=== PATIENT | male | born 1970 | race Caucasian/White ===

== ENCOUNTER 2018-04-06 09:59 | Emergency (ER) | payer OTHER ==
[2018-04-06] MEDS ORDERED: diphenhydrAMINE 25 MG CAP PO STA (10:46)
[2018-04-06] MEDS ORDERED: FAMOTIDINE 20 MG TAB PO STA (10:46)
[2018-04-06] MEDS ORDERED: predniSONE 50 MG TAB PO STA (10:46)
--- NOTE | 2018-04-06 11:10 | ED ---
Allergic Reaction HPI - General Chief complaint: Allergic Reaction Stated complaint: Bee Sting-[facility] Time Seen by Provider: 04/06/18 10:30 Source: patient, RN notes reviewed Mode of arrival: ambulatory Limitations: no limitations - History of Present Illness Initial Comments: Is a 47-year-old male with a benign past medical history states he was stung by a bee about 2 hours prior to arrival. He complains some tightness in his throat some discomfort to the left side of his face where he was stung he denies any itchiness at this time no shortness of breath no other modifying factors. He has no prior history of bee sting ALLERGIES. MD Complaint: allergic reaction - Related Data Home Medications Medication Instructions Recorded Confirmed Montelukast [Singulair] 10 mg PO HS 07/14/16 04/06/18 Sertraline [Zoloft] 100 mg PO HS 07/14/16 04/06/18 hydrOXYzine PAMOATE [Vistaril] 100 mg PO HS 07/14/16 04/06/18 Acetaminophen Tab [Tylenol Tab] 1,000 mg PO Q6H PRN 04/06/18 04/06/18 Atenolol [Tenormin] 25 mg PO HS 04/06/18 04/06/18 Ranitidine HCl 300 mg PO DAILY 04/06/18 04/06/18 Previous Rx's Medication Instructions Recorded Famotidine [Pepcid] 20 mg PO BID #10 tablet 04/06/18 diphenhydrAMINE [Benadryl] 25 mg PO QID PRN #20 capsule 04/06/18 methylPREDNISolone Dose Pack 4 mg PO DIRECTED #21 package 04/06/18 [Medrol Dose Pack] Allergies Allergy/AdvReac Type Severity Reaction Status Date / Time clarithromycin [From Biaxin] Allergy Rash/Hives Verified 04/06/18 10:47 aspirin AdvReac Chest Pain Verified 04/06/18 10:47 orenaid Allergy INCREASES Uncoded 04/06/18 10:47 BP Review of Systems ROS Statement: Those systems with pertinent positive or pertinent negative responses have been documented in the HPI. ROS Other: All systems not noted in ROS Statement are negative. Past Medical History Past Medical History: Hypertension Additional Past Medical History / Comment(s): anxiety History of Any Multi-Drug Resistant Organisms: None Reported Additional Past Surgical History / Comment(s): knee x4 Past Psychological History: Anxiety Smoking Status: Never smoker Past Alcohol Use History: None Reported Past Drug Use History: None Reported General Exam - General Exam Comments Initial Comments: This a well-developed well-nourished awake alert oriented times 3 male Limitations: no limitations General appearance: alert, anxious Head exam: Present: atraumatic, normocephalic, normal inspection Eye exam: Present: normal appearance, PERRL, EOMI. Absent: scleral icterus, conjunctival injection, periorbital swelling ENT exam: Present: normal exam, mucous membranes moist, other (Mild erythema seen to the left side of the face no obvious foreign body or open wound seen at this time.) Neck exam: Present: normal inspection, other (No stridor JVD or bruits appreciated). Absent: tenderness, meningismus, lymphadenopathy Respiratory exam: Present: normal lung sounds bilaterally. Absent: respiratory distress, wheezes, rales, rhonchi, stridor Cardiovascular Exam: Present: regular rate, normal rhythm, normal heart sounds. Absent: systolic murmur, diastolic murmur, rubs, gallop, clicks GI/Abdominal exam: Present: soft, normal bowel sounds. Absent: distended, tenderness, guarding, rebound, rigid Extremities exam: Present: normal inspection, full ROM, normal capillary refill. Absent: tenderness, pedal edema, joint swelling, calf tenderness Back exam: Present: normal inspection Neurological exam: Present: alert, oriented X3, CN II-XII intact Psychiatric exam: Present: normal affect, normal mood Skin exam: Present: warm, dry, intact, normal color. Absent: rash Course Vital Signs 04/06/18 10:13 Temperature 98.1 F Pulse Rate 75 Respiratory 20 Rate Blood Pressure 146/81 O2 Sat by Pulse 100 Oximetry Medical Decision Making - Medical Decision Making Workup is indicated at this time. Patient does present with evidence of a mild reaction to bee sting. Patient will be given appropriate medication and discharged. Disposition Clinical Impression: Allergic reaction to insect sting Disposition: HOME SELF-CARE Condition: Good Instructions: Insect Bite or Sting (ED) Prescriptions: diphenhydrAMINE [Benadryl] 25 mg PO QID PRN #20 capsule PRN Reason: Allergy Symptoms Famotidine [Pepcid] 20 mg PO BID #10 tablet methylPREDNISolone Dose Pack [Medrol Dose Pack] 4 mg PO DIRECTED #21 package Is patient prescribed a controlled substance at d/c from ED?: No Referrals: Mary Ellen Parks MD [Primary Care Provider] - 1-2 days
[2018-04-06 11:31] VITALS: BP 135/79; PULSE 79; RESP 18; TEMP 98
== END 2018-04-06 11:28 | disposition home or self-care (01) ==
LOC: EC 09:59
DX: T63.411A Toxic effect of venom of centipedes and venomous millipedes, accidental (unintentional), initial encounter (principal); I10 Essential (primary) hypertension; F41.9 Anxiety disorder, unspecified; Z79.899 Other long term (current) drug therapy; Z88.1 Allergy status to other antibiotic agents; Z88.6 Allergy status to analgesic agent; Z91.048 Other nonmedicinal substance allergy status; Y92.69 Other specified industrial and construction area as the place of occurrence of the external cause; Y99.0 Civilian activity done for income or pay
CPT/HCPCS: 99283; J7512

== ENCOUNTER → 2021-08-19 | Outpatient (CLI) | payer OTHER ==
--- NOTE | 2021-08-19 13:17 | XR ---
EXAM TYPE: LUMBAR SPINE X RAY SERIES COMPARISON: NONE HISTORY: Pain TECHNIQUE: 3 views are submitted. FINDINGS: Alignment is anatomic. The pedicles are intact. The transverse processes are intact. There is hype rtrophic spurring at multiple levels with moderate to severe degenerative disc disease L4-L5 and L5-S 1 with facet arthropathy. IMPRESSION: 1. Degenerative disc disease L4-5 and L5-S1 with facet arthropathy and probable foraminal encroachmen t. Correlate with MRI as clinically warranted.
== END | disposition home or self-care (01) ==
LOC: RADXRMAIN 12:51
PROVIDERS: ATTEND Emergency Medicine
DX: M51.37 Other intervertebral disc degeneration, lumbosacral region (principal); M47.897 Other spondylosis, lumbosacral region
CPT/HCPCS: 72100

== ENCOUNTER 2023-08-25 10:48 | Day surgery (SDC) | payer MEDICAID, OTHER ==
[~2023-08-25 10:48] MED LIST: LACTATED RINGERS 1,000 ML IV SCH
[2023-08-25] MEDS ORDERED: ONDANSETRON 4 MG/2 ML VIAL ONE (11:40)
[2023-08-25] MEDS ORDERED: PROPOFOL 10 MG/ML 20 ML VIAL IV ONE (11:43)
[2023-08-25 11:56] VITALS: RESP 16; TEMP 97.3
--- NOTE | 2023-08-25 12:00 | P.PCN ---
Date of Procedure: 08/25/23 Procedure(s) Performed: BRIEF HISTORY: Patient is a 53-year-old pleasant male scheduled for an elective colonoscopy as a part of screening for colon cancer and family history of colon cancer. Mother was diagnosed with colon cancer at age 58. PROCEDURE PERFORMED: Colonoscopy snare polypectomy. PREOPERATIVE DIAGNOSIS: Screening for colon cancer and family history of colon cancer. IV sedation per Anesthesia. PROCEDURE: After informed consent was obtained, the patient, was brought into the endoscopy unit. IV sedation was administered by Anesthesia under continuous monitoring. Digital rectal examination was normal. Initially the Olympus CF-160 flexible video colonoscope was then inserted in the rectum, gradually advanced into the cecum without any difficulty. Careful examination was performed as the scope was gradually being withdrawn. Ileocecal valve and the appendiceal orifice were visualized and appeared normal. Prep was excellent. Mucosa of the cecum had a 5 mm 2 polyps removed by cold snare polypectomy. In the hepatic flexure there was a 7 mm polyp removed by cold snare polypectomy. In the descending colon there was a 3 minute a polyp removed by snare polypectomy., ascending colon, transverse colon, descending colon, sigmoid colon, and rectum appeared normal. In the rectum there was a former limited polyp removed by snare polypectomy. Retroflexion was performed in the rectum and no lesions were seen. The patient tolerated the procedure well. Impression: 5 mm cecal polyp 2 status post cold snare polypectomy 7 mm hepatic flexure polyp status post snare polypectomy 3 mm descending colon polyp status post snare polypectomy 4 mm rectal polyp status post polypectomy RECOMMENDATIONS: Findings of this examination were discussed with the patient as well as his family. He was advised to call with the biopsy results. If the biopsy results and no malignancy colonoscopy in 3 years.
[2023-08-25 12:22] VITALS: BP 124/79; PULSE 75
== END 2023-08-25 12:35 | disposition home or self-care (01) ==
LOC: ORWHC2ENDO 10:48
PROVIDERS: ATTEND Internal Medicine Gastroenterology
DX: Z12.11 Encounter for screening for malignant neoplasm of colon (principal); D12.0 Benign neoplasm of cecum; D12.3 Benign neoplasm of transverse colon; D12.4 Benign neoplasm of descending colon; K62.1 Rectal polyp; I10 Essential (primary) hypertension; F41.9 Anxiety disorder, unspecified; Z88.8 Allergy status to other drugs, medicaments and biological substances; Z88.6 Allergy status to analgesic agent; Z80.0 Family history of malignant neoplasm of digestive organs; Z79.899 Other long term (current) drug therapy
CPT/HCPCS: 88305; 45385; J2704

== ENCOUNTER 2024-09-18 14:33 | Emergency (ER) | payer OTHER, MEDICAID ==
[2024-09-18 14:37] VITALS: TEMP 98.3
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
[2024-09-18] MEDS: HYDROmorphone 1 MG/ML 1 ML SYRINGE IM STA (15:38)
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
[2024-09-18] MEDS: KETOROLAC 15 MG/ML 1 ML VIAL IM STA (16:17)
[2024-09-18 16:24] VITALS: BP 128/74; PULSE 88; RESP 20
== END 2024-09-18 16:24 | disposition home or self-care (01) ==
LOC: EC 14:33
DX: S16.1XXA Strain of muscle, fascia and tendon at neck level, initial encounter (principal); M25.562 Pain in left knee; M25.572 Pain in left ankle and joints of left foot; M54.2 Cervicalgia; M25.521 Pain in right elbow; Z88.8 Allergy status to other drugs, medicaments and biological substances; Z88.1 Allergy status to other antibiotic agents; Z88.6 Allergy status to analgesic agent
CPT/HCPCS: 70450; 72125; 99285

== ENCOUNTER → 2024-09-20 | Outpatient (CLI) | payer OTHER ==
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
== END | disposition home or self-care (01) ==
LOC: RADXRMAIN 10:18
PROVIDERS: ATTEND Emergency Medicine
DX: S80.02XA Contusion of left knee, initial encounter (principal); M79.89 Other specified soft tissue disorders

== ENCOUNTER → 2024-09-22 | Outpatient (CLI) | payer OTHER ==
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
== END | disposition home or self-care (01) ==
LOC: RADXRMAIN 09:54
PROVIDERS: ATTEND Emergency Medicine
DX: S33.5XXD Sprain of ligaments of lumbar spine, subsequent encounter (principal); M47.816 Spondylosis without myelopathy or radiculopathy, lumbar region
CPT/HCPCS: 72100

== ENCOUNTER → 2025-01-02 | Outpatient (CLI) | payer MEDICAID ==
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
== END | disposition home or self-care (01) ==
LOC: RADUSWWP 07:59
PROVIDERS: ATTEND Family Medicine
DX: R22.2 Localized swelling, mass and lump, trunk (principal)
CPT/HCPCS: 76604